=== PATIENT | male | born 1960 | race Caucasian/White ===

== ENCOUNTER 2024-10-10 09:35 | Emergency (ER) | payer MEDICAID ==
[~2024-10-10] VITALS: Ht 162.6 cm; Wt 58.0 kg
[~2024-10-10 09:35] MED LIST: OLAN5TAB74 PO; THIA100T72 MT
[2024-10-10 09:49] VITALS: O2SAT 87
[2024-10-10 11:00] LABS: BASOPHILS % 0.7 % (0.0-2.0); EOSINOPHILS % 4.6 % (0.0-5.0); HEMOGLOBIN. 13.7 g/dL (14.0-18.0); LYMPHOCYTES % 11.9 % (20.0-50.0); MEAN CORPUSCULAR HGB CONC 32.6 g/dL (31.0-37.0); MEAN PLATELET VOLUME 7.9 fl (7.4-10.4); MONOCYTES % 8.6 % (2.0-8.0); NEUTROPHILS % 74.2 % (40.0-76.0); PLATELET 320 x1000/uL (130-400); RED BLOOD CELL COUNT 4.57 mill/uL (4.7-6.1); RED CELL DISTRIBUTION WIDTH 13.5 % (11.6-14.6); WHITE BLOOD COUNT 8.6 x1000/uL (4.5-11.0)
[2024-10-10 11:13] LABS: CHLORIDE 110 mEq/L (98-107); POTASSIUM 3.9 mEq/L (3.5-5.1); SODIUM 143 mEq/L (136-145)
[2024-10-10 11:14] LABS: CALCIUM 9.2 mg/dL (8.7-10.4); CARBON DIOXIDE 26 mEq/L (21-32)
[2024-10-10 11:19] LABS: GLUCOSE 82 mg/dL (70-105); UREA NITROGEN BLOOD 19 mg/dL (9-23)
[2024-10-10 11:21] VITALS: TEMP 36.83628
[2024-10-10 11:21] LABS: ALANINE AMINOTRANSFERASE 19 IU/L (10-49); ALBUMIN 4.2 g/dL (3.2-4.8); ASPARTATE AMINOTRANSFERASE 21 IU/L (<34); BILIRUBIN TOTAL 0.5 mg/dL (0.1-1.0); PROTEIN TOTAL 6.6 g/dL (6.0-8.3)
[2024-10-10] MEDS: HYDROCODONE/ACETAMINOPHEN 5/325MG TABLET PO ONE (11:31)
[2024-10-10] MEDS: AMLODIPINE 5MG TABLET PO ONE (11:52)
[2024-10-10 12:05] VITALS: TEMP 98.3
[2024-10-10] MEDS ORDERED: HYDR-4001 MT (13:09)
[2024-10-10] MEDS ORDERED: KETOROLAC 30MG/ML VIAL IM ONE (13:15)
[2024-10-10 13:30] VITALS: BP 194/108; PULSE 61; RESP 17; O2SAT 98
== END 2024-10-10 13:40 | disposition home or self-care (01) ==
LOC: ER 09:35
DX: S22.49XA Multiple fractures of ribs, unspecified side, initial encounter for closed fracture (principal); I10 Essential (primary) hypertension; F31.9 Bipolar disorder, unspecified; Z98.890 Other specified postprocedural states; X58.XXXA Exposure to other specified factors, initial encounter; Y93.89 Activity, other specified; Y92.89 Other specified places as the place of occurrence of the external cause; Y99.8 Other external cause status
CPT/HCPCS: 36415; 71045; 80053; 85025; 99285